=== PATIENT | male | born 1975 | race Hispanic/Latino ===

== ENCOUNTER → 2022-09-05 | Day surgery (SDC) | payer BC ==
[~2022-09-05] MED LIST: FENTANYL CITRATE/PF 100MCG/2 ML INJ ONE; HYOSCYAMINE SULFATE 0.5 MG/ML INJ ONE; LIDOCAINE HCL 2% LOCAL INJ 5 ML SDV VIAL INJ ONE; MIDAZOLAM HCL 2 MG/2 ML VIAL ONE; MOUNJARO5 MG/0.5 M; MULTI-VITAMIN1 EACH PO; PROPOFOL IV EMULSION 10 MG/ML 20 ML VIAL ONE
[2022-09-05 16:15] VITALS: BP 110/73
== END | disposition home or self-care (01) ==
LOC: OR 11:29
PROVIDERS: ATTEND Internal Medicine Gastroenterology
DX: Z12.11 Encounter for screening for malignant neoplasm of colon (principal); K63.5 Polyp of colon; K57.30 Diverticulosis of large intestine without perforation or abscess without bleeding; K64.8 Other hemorrhoids; Z71.3 Dietary counseling and surveillance; E11.9 Type 2 diabetes mellitus without complications; M19.90 Unspecified osteoarthritis, unspecified site; R03.0 Elevated blood-pressure reading, without diagnosis of hypertension; Z71.89 Other specified counseling; F17.210 Nicotine dependence, cigarettes, uncomplicated; Z71.6 Tobacco abuse counseling; Z01.810 Encounter for preprocedural cardiovascular examination; Z86.16 Personal history of COVID-19; Z68.34 Body mass index [BMI] 34.0-34.9, adult
CPT/HCPCS: 36415; 45380; 45385; 82948; 93005; J1980; J2001; J2250; J2704; J3010; 45378